=== PATIENT | female | born 2000 | race Two or more races ===

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

== ENCOUNTER 2021-09-01 18:13 | Emergency (ER) | payer OTHER ==
[2021-09-01] MEDS ORDERED: oxyCODONE 5 MG TABLET PO STA (19:56)
[2021-09-01] MEDS ORDERED: predniSONE 20 MG TABLET PO STA (19:57)
--- NOTE | 2021-09-01 20:04 | ED Physician Documentation ---
History of Present Illness - Stated complaint Stated Complaint: BACK PX,NUMBNESS - Chief complaint Chief Complaint: Back Pain - Additonal information Additional information: 20-year-old female presents emergency department for evaluation of acute on chronic low back pain. She reports a history of chronic back pain that has not improved with physical therapy and regular exercise. Number of weeks ago she thinks that she pulled her muscles and put her back out. Since then she has been stretching, using muscle relaxers and Motrin without relief of pain. She did go to a chiropractor today and feels now that the pain is worse. She does report a history of right leg shortening which is contributed to the back pain in the past. She has no fevers, saddle anesthesia or loss of bowel or bladder function. 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 : None HEENT: None Psych: None Musculoskeletal: None Derm: None - Past Surgical History Past Surgical History: No - Present Medications Home Medications: Ambulatory Orders Medication Instructions Recorded Confirmed oxyCODONE [Roxicodone] 5 mg PO BID #10 tablet 09/01/21 predniSONE [Deltasone] 40 mg PO DAILY 4 Days #8 tablet 09/01/21 - Allergies Allergies/Adverse Reactions: Allergies Allergy/AdvReac Type Severity Reaction Status Date / Time No Known Drug Allergies Allergy Verified 09/01/21 18:25 - Social History Does the pt smoke?: No Smoking Status: Never smoker Does the pt drink ETOH?: No Does the pt have substance abuse?: No - Immunizations Immunizations are current?: Yes - POLST Patient has POLST: No PD ED PE NORMAL - General General: Alert and oriented X 3, No acute distress, Well developed/nourished - HEENT HEENT: Atraumatic, PERRL - Respiratory Respiratory: No respiratory distress, Clear bilaterally - Back Back: Other (Tenderness of the right lower paraspinous Muscles. Focal tenderness at the SI joint. Negative straight leg. Reduced forward flexion secondary to pain. Motor strength 5 of 5. Able to walk on heels and toes). 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 Has had this in the past that resolved with physical therapy and regular exercise. She threw her back out a few weeks ago and despite exercising, stretching, Motrin and muscle relaxers no relief of pain. Acutely worse today following chiropractor visit. She has no red flags on exam. She is administered oxycodone here in the emergency department and will be trialed on a 5-day course of steroids. I recommended close follow-up with PCP. Likely would benefit from repeat treatment with physical therapy. If not markedly better can consider MRI. Emergent return precautions were discussed for worsening symptoms. I am prescribing a short course of short-acting opioid pain medication for this patient. 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 I have discussed that the opioids are for short term therapy only, and will not be refilled from the ED. Departure - Departure Disposition: 01 Home, Self Care Clinical Impression: Right low back pain Qualifiers: Chronicity: acute Sciatica presence: unspecified whether sciatica present Qualified Code(s): M54.50 - Low back pain, unspecified Condition: Stable Record reviewed to determine appropriate education?: Yes Instructions: ED Low Back Pain Injury, ED Sprain Strain Lumbar Prescriptions: predniSONE [Deltasone] 40 mg PO DAILY 4 Days #8 tablet oxyCODONE [Roxicodone] 5 mg PO BID #10 tablet Comments: Glenis, I hope that your back pain is feeling better soon. I suspect that you have very exacerbated your old injury. In order to help manage this I would like you to fill the prescription for the prednisone and begin taking tomorrow evening as directed. Your first dose of steroids was given tonight in the emergency department. This should help reduce pain and inflammation over the next 12 to 72 hours. For the severe pain I have prescribed a very limited amount of oxycodone. I think it is important that you discuss this ED visit with your primary doctor. You would benefit from redo referral to physical therapy. It is also important to consider whether you would benefit from a repeat MRI now that you are done growing. In general avoid stretching exercises but continue to walk as much as you can in order to maintain limber nest. Icing the back over the next few days should be helpful. If at any point you find that you have numbness or tingling in your genital area, lose control of your bowel or bladder function, or have sudden weakness in your lower extremity then please return to the ER for second colt luation
[2021-09-01 20:05] VITALS: BP 129/74
== END 2021-09-01 20:21 | disposition home or self-care (01) ==
LOC: ED 18:13
DX: M54.50 Low back pain, unspecified (principal); G89.29 Other chronic pain
CPT/HCPCS: 99282; 99283; A9270; J7512

== ENCOUNTER 2021-09-23 08:00 | Outpatient (CLI) | payer OTHER ==
[2021-09-23 23:36] LABS: CHLAMYDIA TRACHOMATIS DNA NEGATIVE (NEGATIVE); NEISSERIA GONORRHOEAE DNA NEGATIVE (NEGATIVE); TRICHOMONAS VAGINALIS DNA NEGATIVE (NEGATIVE)
== END 2021-09-23 23:59 | disposition home or self-care (01) ==
LOC: LAB 08:00
PROVIDERS: ATTEND Nurse Practitioner
DX: Z11.3 Encounter for screening for infections with a predominantly sexual mode of transmission (principal)
CPT/HCPCS: 87491; 87591; 87661